=== PATIENT | male | born 1985 | race Two or more races ===

== ENCOUNTER → 2016-10-27 | Emergency (ER) | payer BC ==
[~2016-10-27] VITALS: Ht 172.7 cm; Wt 54.4 kg
[2016-10-27 13:51] VITALS: BP 120/80
--- NOTE | 2016-10-27 15:14 | Emergency Room Report ---
History of Present Illness General Chief Complaint: General Complaint Source: Patient Present Illness HPI 31-year-old male presents emergency department complaining of "freaking out " after taking LSD at 10 AM this morning. Patient states he started feeling weird , panicked and called 911. Patient states that now he feels fine. Denies medical history denies allergies, PT is not currently taking medications. Patient stated that after using LSD his room started to look weird and he got scared. Patient denies any medical complaint at this time. Denies CP, Palpitations, LOC, AMS, dizziness, Changes in Vision, Sensation, paresthesias, or a sudden severe headache. Denies SI/HI Patient History Past Medical History: see triage record Past Surgical History: none Pertinent Family History: none Social History: Reports: drug use Immunizations: UTD Reviewed Nursing Documentation: PMH: Agreed, PSxH: Agreed Review of Systems All Other Systems: negative except mentioned in HPI Physical Exam Vital Signs Date Time Temp Pulse Resp B/P Pulse Ox O2 Delivery O2 Flow Rate FiO2 10/27/16 13:51 98.1 92 16 120/80 98 Room Air Sp02 EP Interpretation: reviewed, normal General Appearance: no apparent distress, alert, GCS 15, non-toxic Head: normocephalic, atraumatic Eyes: bilateral eye PERRL, bilateral eye normal inspection ENT: hearing grossly normal, normal pharynx, no angioedema, normal voice Neck: full range of motion, supple/symm/no masses Respiratory: chest non-tender, lungs clear, normal breath sounds, speaking full sentences Cardiovascular #1: regular rate, rhythm, no edema Cardiovascular #2: 2+ radial (R), 2+ radial (L) Gastrointestinal: normal bowel sounds, non tender, soft, no guarding, no rebound Rectal: deferred Genitourinary: normal inspection, no CVA tenderness Musculoskeletal: back normal, gait/station normal, normal range of motion, non- tender, no calf tenderness Neurologic: alert, oriented x3, responsive, motor strength/tone normal, sensory intact, cerebellar normal, normal gait, speech normal Psychiatric: judgement/insight normal, memory normal, mood/affect normal, no suicidal/homicidal ideation Skin: normal color, no rash, warm/dry, well hydrated Lymphatic: no adenopathy Medical Decision Making PA Attestation Dr. Calero is my supervising Physician whom patient management has been discussed with. Diagnostic Impression: Primary Impression: Drug abuse ER Course Pt. presents to the ED complaining of "freaking out " after taking LSD at 10 AM this morning. Patient states he started feeling weird, panicked and called 911. Patient states that now he feels fine. - pt. is NAD, pt. is alert, no obvious signs of trauma, able to ambulate with a steady gait and answer questions appropriately. Ddx considered but are not limited to ETOH, Trauma, Syncope, dementia, OD Vital signs: are WNL, pt. is afebrile H&PE are most consistent with substance abuse. ORDERS: none required at this time ED INTERVENTIONS: -Observance DISCHARGE: At this time pt. is stable for d/c to home. Will provide printed patient care instructions, and any necessary prescriptions. Care plan and follow up instructions have been discussed with the patient prior to discharge. Last Vital Signs Date Time Temp Pulse Resp B/P Pulse Ox O2 Delivery O2 Flow Rate FiO2 10/27/16 13:51 98.1 92 16 120/80 98 Room Air Disposition: HOME, SELF-CARE Condition: Stable Referrals: NOT CHOSEN IPA/MD,REFERRING (PCP) Patient Instructions: Substance Use Disorder Additional Instructions: Take any previously prescribed medications as directed. Follow up with PCP in 3-5 days Return sooner to ED if new symptoms occur, or current symptoms become worse. *!* Review provided list of Drug abuse resources *!* Avis Wilks Oct 27, 2016 15:14
== END | disposition home or self-care (01) ==
LOC: EDBD 14:04 → EMR 14:56
DX: F16.10 Hallucinogen abuse, uncomplicated (principal)
CPT/HCPCS: 99283